=== PATIENT | male | born 1990 | race Caucasian/White ===

== ENCOUNTER 2018-03-06 18:30 | Emergency (ER) | payer MEDICAID ==
[~2018-03-06] VITALS: Ht 167.6 cm; Wt 81.8 kg
[2018-03-06 18:38] VITALS: Ht 167.6 cm; Wt 81.8 kg
[2018-03-06] MEDS ORDERED: KLONOPIN1 MG PO (18:39)
[2018-03-06] MEDS ORDERED: SEROQUEL100 MG PO (18:40)
[2018-03-06] MEDS ORDERED: CATAPRES0.1 MG PO (18:40)
[2018-03-06] MEDS ORDERED: DEPAKOTE ER500 MG PO (18:40)
[2018-03-06 19:38] LABS: BASOPHILS 0.3 % (0-2); EOSINOPHILS 0.6 % (0-7); HEMATOCRIT 40.6 % (42.0-54.0); HEMOGLOBIN 13.1 g/dL (13.5-17.5); IMMATURE GRANULOCYTES 0.1 % (0-5); LYMPHOCYTES 33.7 % (15-50); MCH 30.5 pg (26.0-34.0); MCHC 32.3 g/dL (31.0-37.0); MCV 94.4 fL (80.0-100.0); MEAN PLATELET VOLUME 10.3 fL (7.4-10.4); MONOCYTES 12.1 % (2-11); NEUTROPHILS 53.2 % (40-80); PLATELET COUNT 264 10x3/uL (130-400); RDW 13.8 % (11.5-14.5); WBC 7.8 10x3/uL (4.8-10.8)
[2018-03-06 19:49] LABS: APPEARANCE CLEAR (CLEAR); BACTERIA NONE SEEN /hpf (NONE SEEN); BILIRUBIN NEGATIVE (NEGATIVE); COLOR YELLOW (YELLOW); EPITHELIAL CELLS NSEEN /hpf (0-5); GLUCOSE 50 mg/dL (NEGATIVE); KETONE NEGATIVE (NEGATIVE); NITRITE NEGATIVE (NEGATIVE); PROTEIN NEGATIVE (NEGATIVE); RED CELLS - URINE NONE SEEN /hpf (0-5); UROBILINOGEN NORMAL (NORMAL); WHITE CELLS - URINE NSEEN /hpf (0-5)
[2018-03-06 20:01] LABS: UDS - AMPHET POSITIVE QUAL (NEGATIVE); UDS - BARB NEGATIVE QUAL (NEGATIVE); UDS - BENZO NEGATIVE QUAL (NEGATIVE); UDS - COCAINE NEGATIVE QUAL (NEGATIVE); UDS - OPIATE NEGATIVE QUAL (NEGATIVE); UDS - PCP NEGATIVE QUAL (NEGATIVE); UDS - THC NEGATIVE QUAL (NEGATIVE)
[2018-03-06 20:05] LABS: ALBUMIN 3.2 g/dL (3.4-5.0); ALKALINE PHOSPHATASE 77 U/L (46-116); ALT (SGPT) 51 U/L (10-68); BILIRUBIN - TOTAL 0.84 mg/dL (0.2-1.3); CALC OSMOLALITY 286 mosm/kg (275-300); CALCIUM 8.6 mg/dL (8.5-10.1); CARBON DIOXIDE 31.5 mmol/L (21.0-32.0); CHLORIDE - SERUM 106 mmol/L (98-107); CREATININE - SERUM 0.7 mg/dL (0.6-1.3); GLUCOSE 105 mg/dL (74-106); POTASSIUM - SERUM 3.7 mmol/L (3.5-5.1); PROTEIN - SERUM 7.3 g/dL (6.4-8.2); SODIUM 143 mmol/L (136-145); UREA NITROGEN 18 mg/dL (7-18); eGFR NON AFRICAN AMERICAN > 90 mL/min (90-120)
[2018-03-06 20:15] LABS: THYROID STIMULATING HORMONE 0.85 uIU/mL (0.36-3.74)
[2018-03-07 01:57] VITALS: BP 130/72
== END 2018-03-07 03:06 ==
LOC: D.ER 18:30
PROVIDERS: Family Medicine
DX: R45.851 Suicidal ideations (principal); F41.9 Anxiety disorder, unspecified; F19.10 Other psychoactive substance abuse, uncomplicated; F17.200 Nicotine dependence, unspecified, uncomplicated

== ENCOUNTER 2018-03-18 21:47 | Inpatient (IN) | payer MEDICAID ==
[~2018-03-18] VITALS: Ht 167.6 cm; Wt 85.0 kg
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
--- NOTE | ~2018-03-18 | MORECARE ---
CASE MANAGEMENT DISCHARGE SUMMARY PATIENT: CATHERINE BLACKMON UNIT: [id number] ADM DATE: 03/19/18 AGE: 27 : [birth year] SEX: M ROOM/BED: [facility] AUTHOR: KEYLA CAMARENA PHYSICIAN: REFERRING PHYSICIAN: MAC CARDONA MD DATE OF SERVICE: 03/22/18 Discharge Plan Patient Name: CATHERINE BLACKMON Facility: [facility]:[place] : 1990 Planned Disposition: Inpatient Rehab Anticipated Discharge Date: Discharge Date: Expected LOS: Initial Reviewer: [email or web address] Initial Review Date: 03/19/2018 Generated: 03/22/18 4:53 pm External Providers External Provider: OTHER-OTHER Next Contact Date: Service Request Date: Service Type: Resolution: Reviewer: Comments: Patient Name: CATHERINE BLACKMON Page [id number] at 1553 All edits/amendments must be made on the electronic document DICTATION DATE: 03/22/18 155 SENIOR INFRASTRUCTURE ARCHITECT: EFRA 03/22/18 155 RPT#: [id number] DC DATE: STATUS: ADM IN [facility] [address] [place] [address] END OF REPORT
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
--- NOTE | ~2018-03-18 | MORECARE ---
CASE MANAGEMENT DISCHARGE SUMMARY PATIENT: CATHERINE BLACKMON UNIT: [id number] ADM DATE: 03/19/18 AGE: 27 : [birth year] SEX: M ROOM/BED: D.2121 AUTHOR: MIGUE,DOC PHYSICIAN: REFERRING PHYSICIAN: MAC CARDONA MD DATE OF SERVICE: 03/24/18 Discharge Plan Patient Name: CATHERINE BLACKMON Facility: [facility]:[place] : 1990 Planned Disposition: Home Anticipated Discharge Date: 03/24/18 Discharge Date: 03/24/2018 Expected LOS: 5 Initial Reviewer: [email or web address] Initial Review Date: 03/19/2018 Generated: 03/24/18 5:35 pm Comments DCP- Discharge Planning Updated by [email or web address]: Balbina Tang on 03/23/18 3:[address] CM called and spoke with Johanna at [facility]. She stated that their physician wouldn't accept patient until he was completely healed. Also the patient would have to come to facility and be interviewed then if accepted would be admitted. CM contacted other facilities and [facility] sent over referral form. CM was at patients bedside asking questions on referral form. Patient states he isn't going into any rehab facility or outpatient rehab. Patient stated that his mother Genny Thomas was coming to pick him up and he was going home with her. Patient gave a number [phone] for Genny Thomas. CM attempted to call and it wasn't a working number. CM notified [facility] nurse of patients refusal to go to drug rehab and plans to go home with his mother. CM will continue to follow and assist as needed with discharge planning / needs. DCP- Discharge Planning Updated by [email or web address]: Balbina Tang on 03/22/18 2:[address] Patient Name: CATHERINE BLACKMON Admission Status: ER Accout number: [id number] Admission Date: 03-19-2018 : 1990 Admission Diagnosis: Attending: MAC CARDONA Current LOS: 3 Anticipated DC Date: Planned Disposition: Inpatient Rehab Primary Insurance: [place] [employer] [facility] Discharge Planning Comments: CM met with patient at bedside. CM explained that the MD is requesting that he go into and inpatient drug rehab facility upon discharge. Patient agrees for inpatient drug rehab at this time when he is medically stable. CM contacted [facility] [phone] . Faxed records and awaiting determination. CM will continue to follow and assist as needed with discharge planning / needs. Plant Health Care Technician: Balbina Yuen DP export: 03/23/18 4:08 Patient Name: CATHERINE BLACKMON Page [id number] at 1635 All edits/amendments must be made on the electronic document DICTATION DATE: 03/24/18 1635 SQUARE DANCE CALLER: EFRA 03/24/18 1635 RPT#: [id number] DC DATE:03/24/18 STATUS: DIS IN [facility] [address] [place] [address] END OF REPORT
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
--- NOTE | ~2018-03-18 | MORECARE ---
CASE MANAGEMENT DISCHARGE SUMMARY PATIENT: CATHERINE BLACKMON UNIT: [id number] ADM DATE: 03/19/18 AGE: 27 : [birth year] SEX: M ROOM/BED: [facility] AUTHOR: KEYLA CAMARENA PHYSICIAN: REFERRING PHYSICIAN: MAC CARDONA MD DATE OF SERVICE: 03/22/18 Discharge Plan Patient Name: CATHERINE BLACKMON Facility: [facility]:[place] : 1990 Planned Disposition: Inpatient Rehab Anticipated Discharge Date: Discharge Date: Expected LOS: Initial Reviewer: [email or web address] Initial Review Date: 03/19/2018 Generated: 03/22/18 5:04 pm Comments DCP- Discharge Planning Updated by [email or web address]: Balbina Tang on 03/22/18 2:[address] Patient Name: CATHERINE BLACKMON Admission Status: ER Accout number: [id number] Admission Date: 03-19-2018 : 1990 Admission Diagnosis: Attending: MAC CARDONA Current LOS: 3 Anticipated DC Date: Planned Disposition: Inpatient Rehab Primary Insurance: [place] [employer] [facility] Discharge Planning Comments: CM met with patient at bedside. CM explained that the MD is requesting that he go into and inpatient drug rehab facility upon discharge. Patient agrees for inpatient drug rehab at this time when he is medically stable. CM contacted [facility] [phone] . Faxed records and awaiting determination. CM will continue to follow and assist as needed with discharge planning / needs. Measurement Specialist: Balbina Tang Last DP export: 03/22/18 2:53 Patient Name: CATHERINE BLACKMON Page 57213 at 1604 All edits/amendments must be made on the electronic document DICTATION DATE: 03/22/181602 TOGGLE PRESS FOLDER AND FEEDER: EFRA 03/22/18 160 RPT#: [id number] DC DATE: STATUS: ADM IN [facility] [address] [place] [address] END OF REPORT
--- NOTE | ~2018-03-18 | MORECARE ---
CASE MANAGEMENT DISCHARGE SUMMARY PATIENT: CATHERINE BLACKMON UNIT: [id number] ADM DATE: 03/19/18 AGE: 27 : [birth year] SEX: M ROOM/BED: D.2121 AUTHOR: MIGUE,DOC PHYSICIAN: REFERRING PHYSICIAN: MAC CARDONA MD DATE OF SERVICE: 03/23/18 Discharge Plan Patient Name: CATHERINE BLACKMON Facility: [facility]:[place] : 1990 Planned Disposition: Inpatient Rehab Anticipated Discharge Date: Discharge Date: Expected LOS: Initial Reviewer: [email or web address] Initial Review Date: 03/19/2018 Generated: 03/23/18 6:08 pm Comments DCP- Discharge Planning Updated by [email or web address]: Balbina Tang on 03/23/18 3:[address] CM called and spoke with Johanna at [facility]. She stated that their physician wouldn't accept patient until he was completely healed. Also the patient would have to come to facility and be interviewed then if accepted would be admitted. CM contacted other facilities and [facility] sent over referral form. CM was at patients bedside asking questions on referral form. Patient states he isn't going into any rehab facility or outpatient rehab. Patient stated that his mother Genny Thomas was coming to pick him up and he was going home with her. Patient gave a number [phone] for Genny Thomas. CM attempted to call and it wasn't a working number. CM notified [facility] nurse of patients refusal to go to drug rehab and plans to go home with his mother. CM will continue to follow and assist as needed with discharge planning / needs. DCP- Discharge Planning Updated by [email or web address]: Balbina Tang on 03/22/18 2:[address] Patient Name: CATHERINE BLACKMON Admission Status: ER Accout number: [id number] Admission Date: 03-19-2018 : 1990 Admission Diagnosis: Attending: MAC CARDONA Current LOS: 3 Anticipated DC Date: Planned Disposition: Inpatient Rehab Primary Insurance: [place] [employer] [facility] Discharge Planning Comments: CM met with patient at bedside. CM explained that the MD is requesting that he go into and inpatient drug rehab facility upon discharge. Patient agrees for inpatient drug rehab at this time when he is medically stable. CM contacted [facility] [phone] . Faxed records and awaiting determination. CM will continue to follow and assist as needed with discharge planning / needs. Barrel Rifler Broach: Balbina Yuen DP export: 03/22/18 3:04 Patient Name: CATHERINE BLACKMON Page 41143 at 1708 All edits/amendments must be made on the electronic document DICTATION DATE: 03/23/181707 LIVESTOCK FARM WORKERS: EFRA 03/23/181707 RPT#: [id number] DC DATE: STATUS: ADM IN [facility] [address] [place] [address] END OF REPORT
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
--- NOTE | ~2018-03-18 | EC ---
PATIENT:CATHERINE BLACKMON DATE OF SERVICE: 03/19/18 SEX: M MEDICAL RECORD: [id number] DATE OF : [birth year] LOCATION:[place] [address] AGE OF PATIENT: 27 ADMISSION DATE: 03/19/18 REFERRING PHYSICIAN: INTERPRETING PHYSICIAN: LIDIA ANN MD ECHOCARDIOGRAM REPORT ECHO CHARGES 5 ECHO LIMITED Date: 03/19/18 CLINICAL DIAGNOSIS: REASSESS FOR PERICARDIAL EFFUSION ECHOCARDIOGRAPHIC MEASUREMENTS (adult normal given) AC root (d.<3.7cm) 3.5 cm LV Septum d (<1.2 cm> 1.3 cm Valve Excursion 1.5 cm LV Septum (systole) 1.4 cm Left Atria (s.<4.0cm> 3.2 cm LVPW d(<1.2cm) 1.2 cm RV (d.<2.3cm) 4.4 cm LVPW (sytole) 1.4 cm LV diastole(<5.6CM) 3.9 cm MV E-F(>70mm/sec) cm LV systole 2.5 cm LVOT Diameter 2.3 cm MV exc.(>10mm) cm Est.ejection fraction (50-75%) % DOPPLER: LVIT cm/sec A 96.0 cm/sec E 65.0 cm/sec LA cm/sec RVSP 40 mmHg LVOT 97 cm/sec AOP1/2T m/s Asc. Ao 110 cm/sec RVOT 64 cm/sec RA cm/sec PA 101 cm/sec AV Gradient Peak 4.86 mmHg AV Mean 2.45 mmHg AV Area 4.1 cm MV Gradient Peak 4.67 mmHg MV Mean 1.83 mmHg MV Area cm COMMENTS: First Aid Teacher: 2 BRISA SANON Supervisor Packing: 3 Dr. Adrian TAPE# PACS Pericardial Effusion Y DATE OF SERVICE: 03/21/2018 Limited study, includes 2-D. Grossly, no LVH. LV internal dimension is normal. Wall motion is normal. EF is greater than or equal to 55%. Aortic valve appears tricuspid. Left atrium appears normal. Mitral valve appears normal. Right-sided chambers appear grossly normal. Tricuspid valve appears normal. No evidence of pericardial effusion. ECHOCARDIOGRAM REPORT [id number] CATHERINE BLACKMON TRANSINT:[id number] Voice Confirmation ID: [id number] DOCUMENT ID: [id number] LIDIA ANN MD at 1150 CC: [id number] DICTATION DATE: 03/21/1844 SUPERVISOR NET MAKING: 03/21/18 1232 ADM IN [facility] [address] [place] [address]
[~2018-03-18 21:47] MED LIST: CATAPRES0.1 MG PO; DEPAKOTE ER500 MG PO; KLONOPIN1 MG PO; SEROQUEL100 MG PO
[2018-03-18 22:05] LABS: HEMATOCRIT 38.6 % (42.0-54.0); HEMOGLOBIN 12.7 g/dL (13.5-17.5); MCH 30.9 pg (26.0-34.0); MCHC 32.9 g/dL (31.0-37.0); MCV 93.9 fL (80.0-100.0); PLATELET COUNT 400 10x3/uL (130-400); RBC 4.11 10x6/uL (4.20-6.10); RDW 14.1 % (11.5-14.5); WBC 30.7 10x3/uL (4.8-10.8)
[2018-03-18 22:22] LABS: ALBUMIN 3.4 g/dL (3.4-5.0); ANION GAP 20.3 mmol/L (8-16); BILIRUBIN - TOTAL 0.69 mg/dL (0.2-1.3); CALCIUM 8.8 mg/dL (8.5-10.1); CARBON DIOXIDE 21.4 mmol/L (21.0-32.0); CREATININE - SERUM 1.6 mg/dL (0.6-1.3); POTASSIUM - SERUM 3.7 mmol/L (3.5-5.1); PROTEIN - SERUM 7.1 g/dL (6.4-8.2)
[2018-03-18 22:37] LABS: LYMPHOCYTES 16 % (15-50); MONOCYTES 7 % (2-11); NEUTROPHILS 77 % (40-80); PLATELET ESTIMATE INCREASED
[2018-03-18 22:38] VITALS: BP 76/40
[2018-03-18 22:43] VITALS: BP 64/31
[2018-03-18 23:00] VITALS: BP 64/31
[2018-03-18 23:13] VITALS: BP 106/68
[2018-03-18 23:16] VITALS: BP 110/38
[2018-03-18 23:30] VITALS: BP 132/96
[2018-03-19] VITALS (60 sets, daily range): BP systolic 86–192; BP diastolic 40–105; Ht 167.6 cm; Wt 85.0 kg
[2018-03-19 01:09] LABS: BASOPHILS 0.1 % (0-2); EOSINOPHILS 0.1 % (0-7); HEMATOCRIT 33.2 % (42.0-54.0); HEMOGLOBIN 11.2 g/dL (13.5-17.5); IMMATURE GRANULOCYTES 0.8 % (0-5); LYMPHOCYTES 8.2 % (15-50); MCH 30.8 pg (26.0-34.0); MCHC 33.7 g/dL (31.0-37.0); MCV 91.2 fL (80.0-100.0); MEAN PLATELET VOLUME 10.8 fL (7.4-10.4); MONOCYTES 8.6 % (2-11); NEUTROPHILS 82.2 % (40-80); PLATELET COUNT 228 10x3/uL (130-400); RBC 3.64 10x6/uL (4.20-6.10); RDW 14.1 % (11.5-14.5); WBC 22.6 10x3/uL (4.8-10.8)
[2018-03-19 01:20] LABS: APPEARANCE CLEAR (CLEAR); BILIRUBIN NEGATIVE (NEGATIVE); COLOR YELLOW (YELLOW); GLUCOSE 50 mg/dL (NEGATIVE); KETONE NEGATIVE (NEGATIVE); NITRITE NEGATIVE (NEGATIVE); PROTEIN NEGATIVE (NEGATIVE); UROBILINOGEN NORMAL (NORMAL)
[2018-03-19 06:24] LABS: BASOPHILS 0.1 % (0-2); EOSINOPHILS 0.1 % (0-7); HEMATOCRIT 28.7 % (42.0-54.0); HEMOGLOBIN 9.6 g/dL (13.5-17.5); IMMATURE GRANULOCYTES 0.2 % (0-5); MCH 30.5 pg (26.0-34.0); MCHC 33.4 g/dL (31.0-37.0); MCV 91.1 fL (80.0-100.0); MEAN PLATELET VOLUME 9.9 fL (7.4-10.4); MONOCYTES 9.9 % (2-11); NEUTROPHILS 72.7 % (40-80); RBC 3.15 10x6/uL (4.20-6.10); RDW 14.4 % (11.5-14.5)
[2018-03-19 06:28] LABS: PLATELET COUNT 311 10x3/uL (130-400); WBC 13.5 10x3/uL (4.8-10.8)
[2018-03-19 06:30] LABS: CALCIUM 7.8 mg/dL (8.5-10.1); CARBON DIOXIDE 25.3 mmol/L (21.0-32.0); CHLORIDE - SERUM 108 mmol/L (98-107); SODIUM 143 mmol/L (136-145)
[2018-03-19 06:35] LABS: CALC OSMOLALITY 287 mosm/kg (275-300); CREATININE - SERUM 0.8 mg/dL (0.6-1.3); GLUCOSE 88 mg/dL (74-106); UREA NITROGEN 23 mg/dL (7-18); eGFR NON AFRICAN AMERICAN > 90 mL/min (90-120)
[2018-03-19 09:05] LABS: HEMATOCRIT 30.6 % (42.0-54.0); HEMOGLOBIN 9.9 g/dL (13.5-17.5); MCH 29.6 pg (26.0-34.0); MCHC 32.4 g/dL (31.0-37.0); MCV 91.6 fL (80.0-100.0); MEAN PLATELET VOLUME 10.2 fL (7.4-10.4); RBC 3.34 10x6/uL (4.20-6.10); RDW 14.5 % (11.5-14.5); WBC 12.8 10x3/uL (4.8-10.8)
[2018-03-19 09:14] LABS: UDS - AMPHET POSITIVE QUAL (NEGATIVE); UDS - BARB NEGATIVE QUAL (NEGATIVE); UDS - BENZO POSITIVE QUAL (NEGATIVE); UDS - COCAINE NEGATIVE QUAL (NEGATIVE); UDS - OPIATE NEGATIVE QUAL (NEGATIVE); UDS - PCP NEGATIVE QUAL (NEGATIVE); UDS - THC NEGATIVE QUAL (NEGATIVE)
[2018-03-19 09:14] LABS: INR 1.15 (0.85-1.17); PROTIME 14.3 SECONDS (11.6-15.0)
[2018-03-19 09:20] LABS: ALKALINE PHOSPHATASE 55 U/L (46-116); ALT (SGPT) 38 U/L (10-68); BILIRUBIN - TOTAL 0.59 mg/dL (0.2-1.3); CALC OSMOLALITY 286 mosm/kg (275-300); CALCIUM 7.9 mg/dL (8.5-10.1); CARBON DIOXIDE 28.1 mmol/L (21.0-32.0); CHLORIDE - SERUM 108 mmol/L (98-107); CREATININE - SERUM 0.9 mg/dL (0.6-1.3); GLUCOSE 85 mg/dL (74-106); PROTEIN - SERUM 6.2 g/dL (6.4-8.2); SODIUM 143 mmol/L (136-145); UREA NITROGEN 22 mg/dL (7-18); eGFR NON AFRICAN AMERICAN > 90 mL/min (90-120)
[2018-03-19 09:24] LABS: POTASSIUM - SERUM 3.6 mmol/L (3.5-5.1)
[2018-03-20] VITALS (44 sets, daily range): BP systolic 97–129; BP diastolic 43–79
[2018-03-20 04:07] LABS: APPEARANCE HAZY (CLEAR); BACTERIA NONE SEEN /hpf (NONE SEEN); BILIRUBIN NEGATIVE (NEGATIVE); COLOR DK YELLOW (YELLOW); EPITHELIAL CELLS RARE /hpf (0-5); GLUCOSE NEGATIVE (NEGATIVE); KETONE LARGE mg/dL (NEGATIVE); MUCUS >1+ /lpf (NONE SEEN); NITRITE NEGATIVE (NEGATIVE); PROTEIN TRACE mg/dL (NEGATIVE); UROBILINOGEN NORMAL (NORMAL); WHITE CELLS - URINE 0-5 /hpf (0-5)
[2018-03-20 05:45] LABS: BASOPHILS 0.2 % (0-2); EOSINOPHILS 0.2 % (0-7); HEMOGLOBIN 8.6 g/dL (13.5-17.5); IMMATURE GRANULOCYTES 0.2 % (0-5); LYMPHOCYTES 13.9 % (15-50); MCH 30.6 pg (26.0-34.0); MCHC 33.1 g/dL (31.0-37.0); MCV 92.5 fL (80.0-100.0); MONOCYTES 10.9 % (2-11); NEUTROPHILS 74.6 % (40-80); PLATELET COUNT 257 10x3/uL (130-400); RBC 2.81 10x6/uL (4.20-6.10); RDW 14.9 % (11.5-14.5); WBC 12.5 10x3/uL (4.8-10.8)
[2018-03-20 05:54] LABS: ALBUMIN 2.6 g/dL (3.4-5.0); ALKALINE PHOSPHATASE 51 U/L (46-116); ALT (SGPT) 32 U/L (10-68); BILIRUBIN - TOTAL 0.91 mg/dL (0.2-1.3); CALCIUM 8.1 mg/dL (8.5-10.1); CARBON DIOXIDE 24.3 mmol/L (21.0-32.0); CHLORIDE - SERUM 106 mmol/L (98-107); GLUCOSE 105 mg/dL (74-106); POTASSIUM - SERUM 3.2 mmol/L (3.5-5.1); SODIUM 139 mmol/L (136-145)
[2018-03-20 06:11] LABS: CALC OSMOLALITY 277 mosm/kg (275-300); CREATININE - SERUM 0.5 mg/dL (0.6-1.3); UREA NITROGEN 13 mg/dL (7-18); eGFR NON AFRICAN AMERICAN > 90 mL/min (90-120)
[2018-03-21] VITALS (23 sets, daily range): BP systolic 98–137; BP diastolic 47–78
[2018-03-21 06:19] LABS: HEMATOCRIT 24.5 % (42.0-54.0); HEMOGLOBIN 8.2 g/dL (13.5-17.5); MCH 30.8 pg (26.0-34.0); MCHC 33.5 g/dL (31.0-37.0); MCV 92.1 fL (80.0-100.0); RBC 2.66 10x6/uL (4.20-6.10); RDW 14.3 % (11.5-14.5); WBC 14.5 10x3/uL (4.8-10.8)
[2018-03-21 06:48] LABS: ALBUMIN 2.4 g/dL (3.4-5.0); ALKALINE PHOSPHATASE 50 U/L (46-116); ALT (SGPT) 28 U/L (10-68); CALC OSMOLALITY 266 mosm/kg (275-300); CALCIUM 8.2 mg/dL (8.5-10.1); CARBON DIOXIDE 25.8 mmol/L (21.0-32.0); CHLORIDE - SERUM 100 mmol/L (98-107); CREATININE - SERUM 0.5 mg/dL (0.6-1.3); GLUCOSE 124 mg/dL (74-106); POTASSIUM - SERUM 3.3 mmol/L (3.5-5.1); PROTEIN - SERUM 6.4 g/dL (6.4-8.2); SODIUM 134 mmol/L (136-145); eGFR NON AFRICAN AMERICAN > 90 mL/min (90-120)
[2018-03-21 06:58] LABS: UREA NITROGEN 8 mg/dL (7-18)
[2018-03-22] VITALS (24 sets, daily range): BP systolic 93–154; BP diastolic 48–82
[2018-03-22 06:31] LABS: HEMATOCRIT 23.7 % (42.0-54.0); HEMOGLOBIN 7.7 g/dL (13.5-17.5); MCH 29.8 pg (26.0-34.0); MCHC 32.5 g/dL (31.0-37.0); MCV 91.9 fL (80.0-100.0); MEAN PLATELET VOLUME 10.2 fL (7.4-10.4); RBC 2.58 10x6/uL (4.20-6.10)
[2018-03-22 06:37] LABS: WBC 9.9 10x3/uL (4.8-10.8)
[2018-03-22 06:57] LABS: ALKALINE PHOSPHATASE 46 U/L (46-116); ALT (SGPT) 27 U/L (10-68); BILIRUBIN - TOTAL 0.61 mg/dL (0.2-1.3); CALC OSMOLALITY 279 mosm/kg (275-300); CALCIUM 7.7 mg/dL (8.5-10.1); CARBON DIOXIDE 26.4 mmol/L (21.0-32.0); CHLORIDE - SERUM 104 mmol/L (98-107); CREATININE - SERUM 0.6 mg/dL (0.6-1.3); GLUCOSE 148 mg/dL (74-106); POTASSIUM - SERUM 2.8 mmol/L (3.5-5.1); PROTEIN - SERUM 6.2 g/dL (6.4-8.2); SODIUM 140 mmol/L (136-145); UREA NITROGEN 6 mg/dL (7-18); eGFR NON AFRICAN AMERICAN > 90 mL/min (90-120)
[2018-03-22 13:39] LABS: UDS - AMPHET NEGATIVE QUAL (NEGATIVE); UDS - BARB NEGATIVE QUAL (NEGATIVE); UDS - BENZO NEGATIVE QUAL (NEGATIVE); UDS - COCAINE NEGATIVE QUAL (NEGATIVE); UDS - OPIATE POSITIVE QUAL (NEGATIVE); UDS - PCP NEGATIVE QUAL (NEGATIVE); UDS - THC NEGATIVE QUAL (NEGATIVE)
[2018-03-23] VITALS (14 sets, daily range): BP systolic 93–126; BP diastolic 47–81
[2018-03-23 09:43] LABS: CALCIUM 8.7 mg/dL (8.5-10.1); CARBON DIOXIDE 25.5 mmol/L (21.0-32.0); CHLORIDE - SERUM 104 mmol/L (98-107); CREATININE - SERUM 0.6 mg/dL (0.6-1.3); GLUCOSE 104 mg/dL (74-106); SODIUM 140 mmol/L (136-145); eGFR NON AFRICAN AMERICAN > 90 mL/min (90-120)
[2018-03-23 09:44] LABS: CALC OSMOLALITY 276 mosm/kg (275-300); POTASSIUM - SERUM 3.3 mmol/L (3.5-5.1); UREA NITROGEN 8 mg/dL (7-18)
[2018-03-23 10:14] LABS: HEMATOCRIT 27.3 % (42.0-54.0); HEMOGLOBIN 8.8 g/dL (13.5-17.5); MCH 29.9 pg (26.0-34.0); MCHC 32.2 g/dL (31.0-37.0); MCV 92.9 fL (80.0-100.0); MEAN PLATELET VOLUME 10.1 fL (7.4-10.4); RBC 2.94 10x6/uL (4.20-6.10); RDW 13.7 % (11.5-14.5); WBC 10.2 10x3/uL (4.8-10.8)
[2018-03-24 00:54] VITALS: BP 122/60
[2018-03-24 05:32] VITALS: BP 127/73
[2018-03-24 08:31] VITALS: BP 114/69
[2018-03-24 12:00] VITALS: BP 141/67
[2018-03-24 16:03] VITALS: BP 121/82
== END 2018-03-24 16:15 | disposition home or self-care (01) | DRG 270 ==
LOC: D.ER 21:47 → D.CVICU 03-19 03:10 → D.EDHOLD 03-19 03:10 → D.CVICU 03-19 03:13 → D.M2 03-23 16:43
PROVIDERS: Family Medicine; Internal Medicine Cardiovascular Disease; Thoracic Surgery (Cardiothoracic Vascular Surgery)
PROC: 0W9940Z Drainage of Right Pleural Cavity with Drainage Device, Percutaneous Endoscopic Approach (ICD-10-PCS; 2018-03-19)
PROC: 05HM33Z Insertion of Infusion Device into Right Internal Jugular Vein, Percutaneous Approach (ICD-10-PCS; 2018-03-19)
PROC: 5A1935Z Respiratory Ventilation, Less than 24 Consecutive Hours (ICD-10-PCS; 2018-03-19)
PROC: 0BH17EZ Insertion of Endotracheal Airway into Trachea, Via Natural or Artificial Opening (ICD-10-PCS; 2018-03-19)
PROC: 0W9930Z Drainage of Right Pleural Cavity with Drainage Device, Percutaneous Approach (ICD-10-PCS; 2018-03-19)
PROC: 0WC Anatomical Regions, General, Extirpation (ICD-10-PCS; principal; 2018-03-19 09:45)
DX: I31.3 Pericardial effusion (noninflammatory) (principal); S27.1XXA Traumatic hemothorax, initial encounter; S22.2 Fracture of sternum; S21.311A Laceration without foreign body of right front wall of thorax with penetration into thoracic cavity, initial encounter; D62 Acute posthemorrhagic anemia; F32.1 Major depressive disorder, single episode, moderate; S27.892A Contusion of other specified intrathoracic organs, initial encounter; F17.200 Nicotine dependence, unspecified, uncomplicated; F15.10 Other stimulant abuse, uncomplicated; Y28.9XXA Contact with unspecified sharp object, undetermined intent, initial encounter

== ENCOUNTER 2018-03-26 16:11 | Emergency (ER) | payer MEDICAID ==
[2018-03-26 16:21] VITALS: Ht 167.6 cm
[2018-03-26 16:47] LABS: BASOPHILS 0.4 % (0-2); EOSINOPHILS 0.6 % (0-7); HEMATOCRIT 33.1 % (42.0-54.0); HEMOGLOBIN 10.4 g/dL (13.5-17.5); IMMATURE GRANULOCYTES 2.5 % (0-5); LYMPHOCYTES 18.6 % (15-50); MCH 29.5 pg (26.0-34.0); MCHC 31.4 g/dL (31.0-37.0); MEAN PLATELET VOLUME 9.3 fL (7.4-10.4); MONOCYTES 7.5 % (2-11); NEUTROPHILS 70.4 % (40-80); RBC 3.52 10x6/uL (4.20-6.10); RDW 14.1 % (11.5-14.5); WBC 15.9 10x3/uL (4.8-10.8)
[2018-03-26 16:52] LABS: PLATELET COUNT 542 10x3/uL (130-400)
[2018-03-26 16:52] LABS: UDS - AMPHET NEGATIVE QUAL (NEGATIVE); UDS - BARB NEGATIVE QUAL (NEGATIVE); UDS - BENZO POSITIVE QUAL (NEGATIVE); UDS - COCAINE NEGATIVE QUAL (NEGATIVE); UDS - OPIATE NEGATIVE QUAL (NEGATIVE); UDS - PCP NEGATIVE QUAL (NEGATIVE); UDS - THC NEGATIVE QUAL (NEGATIVE)
[2018-03-26 16:56] LABS: APPEARANCE CLEAR (CLEAR); BILIRUBIN NEGATIVE (NEGATIVE); COLOR YELLOW (YELLOW); GLUCOSE NEGATIVE (NEGATIVE); KETONE NEGATIVE (NEGATIVE); NITRITE NEGATIVE (NEGATIVE); PH 6.5 (5.0-6.0); PROTEIN NEGATIVE (NEGATIVE); UROBILINOGEN NORMAL (NORMAL)
[2018-03-26 17:03] LABS: ALBUMIN 2.9 g/dL (3.4-5.0); ALKALINE PHOSPHATASE 92 U/L (46-116); ALT (SGPT) 138 U/L (10-68); BILIRUBIN - TOTAL 0.39 mg/dL (0.2-1.3); CALC OSMOLALITY 276 mosm/kg (275-300); CALCIUM 9.1 mg/dL (8.5-10.1); CHLORIDE - SERUM 102 mmol/L (98-107); CREATININE - SERUM 0.7 mg/dL (0.6-1.3); GLUCOSE 142 mg/dL (74-106); POTASSIUM - SERUM 4.2 mmol/L (3.5-5.1); PROTEIN - SERUM 7.7 g/dL (6.4-8.2); SODIUM 137 mmol/L (136-145); UREA NITROGEN 16 mg/dL (7-18); eGFR NON AFRICAN AMERICAN > 90 mL/min (90-120)
[2018-03-26 22:30] VITALS: BP 130/75
== END 2018-03-27 ==
LOC: D.ER 16:11
PROVIDERS: Family Medicine
DX: R45.850 Homicidal ideations (principal); F17.200 Nicotine dependence, unspecified, uncomplicated

== ENCOUNTER 2018-04-03 07:34 | Inpatient (IN) | payer MEDICAID ==
[~2018-04-03] VITALS: Ht 167.6 cm; Wt 84.6 kg
[2018-04-03] VITALS (11 sets, daily range): BP systolic 107–126; BP diastolic 52–78; Ht 167.6 cm; Wt 84.6 kg
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
--- NOTE | ~2018-04-03 | MORECARE ---
CASE MANAGEMENT DISCHARGE SUMMARY PATIENT: CATHERINE BLACKMON UNIT: [id number] ADM DATE: 04/03/18 AGE: 27 : [birth year] SEX: M ROOM/BED: D.2305 AUTHOR: KEYLA CAMARENA PHYSICIAN: REFERRING PHYSICIAN: RIGO LOUIE MD DATE OF SERVICE: 04/05/18 Discharge Plan Patient Name: CATHERINE BLACKMON Facility: [facility]:[place] : 1990 Planned Disposition: Psych facility Anticipated Discharge Date: Discharge Date: 04/05/2018 Expected LOS: Initial Reviewer: [email or web address] Initial Review Date: 04/05/2018 Generated: 04/05/18 5:02 pm Comments DCP- Discharge Planning Updated by [email or web address]: Balbina Tang on 04/05/18 3:[address] Late Entry 04/05/18 @ 0930 Patient Name: CATHERINE BLACKOMN Admission Status: ER Accout number: [id number] Admission Date: 04-03-2018 : 1990 Admission Diagnosis:PERICARDIAL EFFUSION (NONINFLAMMATORY) Attending: RIGO LOUIE Current LOS: 2 Anticipated DC Date: Planned Disposition: Psych facility Primary Insurance: [place] [employer] [facility] Discharge Planning Comments: CM received notification that patient is medically stable for transfer to psychiatric facility. CM notified transfer center and faxed clinicals requested patient is requesting [facility] for placement and call center aware. CM will continue to follow and assist as needed with discharge planning / needs. Hotel Maid: Balbina Tang External Providers External Provider: [facility] Next Contact Date: Service Request Date: Service Type: Resolution: Reviewer: Comments: Patient Name: CATHERINE BLACKMON Page 20902 at 1602 All edits/amendments must be made on the electronic document DICTATION DATE: 04/05/181601 HOOK LOADER: EFRA 04/05/18 160 RPT#: [id number] DC DATE:04/05/18 STATUS: DIS IN [facility] [address] [facility] [place] [address] END OF REPORT
[2018-04-03 08:36] LABS: BASOPHILS 0.2 % (0-2); EOSINOPHILS 0.6 % (0-7); HEMATOCRIT 27.7 % (42.0-54.0); HEMOGLOBIN 8.6 g/dL (13.5-17.5); IMMATURE GRANULOCYTES 0.4 % (0-5); LYMPHOCYTES 20.1 % (15-50); MCH 28.3 pg (26.0-34.0); MCV 91.1 fL (80.0-100.0); MEAN PLATELET VOLUME 9.1 fL (7.4-10.4); MONOCYTES 15.7 % (2-11); PLATELET COUNT 612 10x3/uL (130-400); RBC 3.04 10x6/uL (4.20-6.10); WBC 13.6 10x3/uL (4.8-10.8)
[2018-04-03 12:01] LABS: APTT 42.8 SECONDS (22.8-39.4); INR 1.24 (0.85-1.17)
[2018-04-03 12:03] LABS: ALBUMIN 2.5 g/dL (3.4-5.0); ALKALINE PHOSPHATASE 98 U/L (46-116); ALT (SGPT) 101 U/L (10-68); BILIRUBIN - TOTAL 0.71 mg/dL (0.2-1.3); CALC OSMOLALITY 270 mosm/kg (275-300); CALCIUM 8.5 mg/dL (8.5-10.1); CARBON DIOXIDE 25.1 mmol/L (21.0-32.0); CHLORIDE - SERUM 103 mmol/L (98-107); CREATININE - SERUM 0.6 mg/dL (0.6-1.3); MAGNESIUM - SERUM 2.2 mg/dL (1.8-2.4); PROTEIN - SERUM 7.5 g/dL (6.4-8.2); SODIUM 136 mmol/L (136-145); UREA NITROGEN 10 mg/dL (7-18); eGFR NON AFRICAN AMERICAN > 90 mL/min (90-120)
[2018-04-03 12:04] LABS: GLUCOSE 94 mg/dL (74-106)
[2018-04-03 14:39] LABS: UDS - AMPHET NEGATIVE QUAL (NEGATIVE); UDS - BARB NEGATIVE QUAL (NEGATIVE); UDS - BENZO NEGATIVE QUAL (NEGATIVE); UDS - COCAINE NEGATIVE QUAL (NEGATIVE); UDS - OPIATE NEGATIVE QUAL (NEGATIVE); UDS - PCP NEGATIVE QUAL (NEGATIVE); UDS - THC NEGATIVE QUAL (NEGATIVE)
[2018-04-04] VITALS (22 sets, daily range): BP systolic 94–134; BP diastolic 54–86
[2018-04-05] VITALS (7 sets, daily range): BP systolic 96–121; BP diastolic 59–75
[2018-04-05 04:51] LABS: BASOPHILS 0.3 % (0-2); EOSINOPHILS 3.5 % (0-7); HEMATOCRIT 29.4 % (42.0-54.0); IMMATURE GRANULOCYTES 0.3 % (0-5); LYMPHOCYTES 45.9 % (15-50); MCH 28.2 pg (26.0-34.0); MCHC 30.6 g/dL (31.0-37.0); MCV 92.2 fL (80.0-100.0); PLATELET COUNT 727 10x3/uL (130-400); RBC 3.19 10x6/uL (4.20-6.10); RDW 14.6 % (11.5-14.5)
[2018-04-05 04:53] LABS: WBC 7.2 10x3/uL (4.8-10.8)
[2018-04-05 05:02] LABS: CALC OSMOLALITY 280 mosm/kg (275-300); CALCIUM 8.9 mg/dL (8.5-10.1); CARBON DIOXIDE 26.6 mmol/L (21.0-32.0); CHLORIDE - SERUM 104 mmol/L (98-107); CREATININE - SERUM 0.7 mg/dL (0.6-1.3); POTASSIUM - SERUM 3.4 mmol/L (3.5-5.1); SODIUM 139 mmol/L (136-145); UREA NITROGEN 12 mg/dL (7-18); eGFR NON AFRICAN AMERICAN > 90 mL/min (90-120)
[2018-04-05 05:10] LABS: GLUCOSE 150 mg/dL (74-106)
== END 2018-04-05 14:30 | disposition short-term general hospital (02) | DRG 315 ==
LOC: D.ER 07:34 → D.M2 08:51 → D.ICU 08:51
PROVIDERS: Emergency Medicine; Internal Medicine Nephrology; Psychiatry & Neurology Psychiatry
DX: I30.9 Acute pericarditis, unspecified (principal); D62 Acute posthemorrhagic anemia; R45.851 Suicidal ideations; F31.9 Bipolar disorder, unspecified; F41.8 Other specified anxiety disorders; K21.9 Gastro-esophageal reflux disease without esophagitis

== ENCOUNTER 2018-04-28 12:11 | Emergency (ER) | payer MEDICAID ==
[2018-04-28 12:27] VITALS: Ht 167.6 cm
[2018-04-28 13:09] LABS: BASOPHILS 0.3 % (0-2); HEMATOCRIT 38.3 % (42.0-54.0); HEMOGLOBIN 12.4 g/dL (13.5-17.5); IMMATURE GRANULOCYTES 0.1 % (0-5); MCH 28.9 pg (26.0-34.0); MCHC 32.4 g/dL (31.0-37.0); MCV 89.3 fL (80.0-100.0); MEAN PLATELET VOLUME 10.3 fL (7.4-10.4); NEUTROPHILS 63.6 % (40-80); RBC 4.29 10x6/uL (4.20-6.10); RDW 15.6 % (11.5-14.5)
[2018-04-28 13:19] LABS: PLATELET COUNT 285 10x3/uL (130-400)
[2018-04-28 13:28] LABS: ALBUMIN 3.7 g/dL (3.4-5.0); ALKALINE PHOSPHATASE 88 U/L (46-116); ALT (SGPT) 45 U/L (10-68); BILIRUBIN - TOTAL 1.03 mg/dL (0.2-1.3); CALC OSMOLALITY 283 mosm/kg (275-300); CALCIUM 8.7 mg/dL (8.5-10.1); CARBON DIOXIDE 21.9 mmol/L (21.0-32.0); CHLORIDE - SERUM 104 mmol/L (98-107); CREATININE - SERUM 0.8 mg/dL (0.6-1.3); GLUCOSE 91 mg/dL (74-106); POTASSIUM - SERUM 3.3 mmol/L (3.5-5.1); SODIUM 139 mmol/L (136-145); UREA NITROGEN 30 mg/dL (7-18); eGFR NON AFRICAN AMERICAN > 90 mL/min (90-120)
[2018-04-28 15:25] LABS: APPEARANCE CLEAR (CLEAR); COLOR YELLOW (YELLOW); NITRITE NEGATIVE (NEGATIVE); SPECIFIC GRAVITY 1.025 (1.005-1.020)
[2018-04-28 15:26] LABS: BILIRUBIN NEGATIVE (NEGATIVE); GLUCOSE NEGATIVE (NEGATIVE); KETONE MODERATE mg/dL (NEGATIVE); PROTEIN NEGATIVE (NEGATIVE); UROBILINOGEN NORMAL (NORMAL)
[2018-04-28 15:33] LABS: UDS - AMPHET POSITIVE QUAL (NEGATIVE); UDS - BARB NEGATIVE QUAL (NEGATIVE); UDS - BENZO NEGATIVE QUAL (NEGATIVE); UDS - COCAINE POSITIVE QUAL (NEGATIVE); UDS - OPIATE NEGATIVE QUAL (NEGATIVE); UDS - PCP NEGATIVE QUAL (NEGATIVE); UDS - THC NEGATIVE QUAL (NEGATIVE)
[2018-04-28 18:54] VITALS: BP 148/088
== END 2018-04-28 18:54 ==
LOC: D.ER 12:11
PROVIDERS: Family Medicine
DX: R45.851 Suicidal ideations (principal); Z59.0 Homelessness; Z86.59 Personal history of other mental and behavioral disorders

== ENCOUNTER 2018-06-08 06:32 | Emergency (ER) | payer MEDICAID ==
[~2018-06-08] VITALS: Ht 167.6 cm; Wt 91.4 kg
[2018-06-08 06:49] VITALS: BP 142/86; Ht 167.6 cm; Wt 91.4 kg
[2018-06-08] MEDS ORDERED: TOPAMAX (06:50)
[2018-06-08] MEDS ORDERED: PROPANALOL (06:50)
[2018-06-08] MEDS ORDERED: ZYPREXA (06:50)
[2018-06-08] MEDS ORDERED: SERTRALINE (06:51)
[2018-06-08 07:12] LABS: BASOPHILS 0.3 % (0-2); HEMATOCRIT 44.6 % (42.0-54.0); HEMOGLOBIN 14.7 g/dL (13.5-17.5); IMMATURE GRANULOCYTES 0.3 % (0-5); LYMPHOCYTES 45.2 % (15-50); MCH 29.3 pg (26.0-34.0); MEAN PLATELET VOLUME 10.3 fL (7.4-10.4); NEUTROPHILS 41.2 % (40-80); RBC 5.01 10x6/uL (4.20-6.10); RDW 14.4 % (11.5-14.5); WBC 6.6 10x3/uL (4.8-10.8)
[2018-06-08 07:23] LABS: ALBUMIN 3.7 g/dL (3.4-5.0); ALKALINE PHOSPHATASE 83 U/L (46-116); ALT (SGPT) 79 U/L (10-68); BILIRUBIN - TOTAL 0.34 mg/dL (0.2-1.3); CALC OSMOLALITY 284 mosm/kg (275-300); CALCIUM 9.1 mg/dL (8.5-10.1); CARBON DIOXIDE 28.9 mmol/L (21.0-32.0); CHLORIDE - SERUM 106 mmol/L (98-107); CREATININE - SERUM 0.7 mg/dL (0.6-1.3); GLUCOSE 123 mg/dL (74-106); POTASSIUM - SERUM 3.9 mmol/L (3.5-5.1); PROTEIN - SERUM 8.3 g/dL (6.4-8.2); SODIUM 142 mmol/L (136-145); UREA NITROGEN 16 mg/dL (7-18); eGFR NON AFRICAN AMERICAN > 90 mL/min (90-120)
[2018-06-08 07:27] LABS: PLATELET COUNT 365 10x3/uL (130-400)
[2018-06-08 07:41] LABS: APPEARANCE CLEAR (CLEAR); BILIRUBIN NEGATIVE (NEGATIVE); COLOR YELLOW (YELLOW); GLUCOSE NEGATIVE (NEGATIVE); KETONE NEGATIVE (NEGATIVE); NITRITE NEGATIVE (NEGATIVE); PROTEIN NEGATIVE (NEGATIVE); SPECIFIC GRAVITY 1.025 (1.005-1.020); UROBILINOGEN NORMAL (NORMAL)
[2018-06-08 07:49] LABS: UDS - AMPHET NEGATIVE QUAL (NEGATIVE); UDS - BARB NEGATIVE QUAL (NEGATIVE); UDS - BENZO NEGATIVE QUAL (NEGATIVE); UDS - COCAINE NEGATIVE QUAL (NEGATIVE); UDS - OPIATE NEGATIVE QUAL (NEGATIVE); UDS - PCP NEGATIVE QUAL (NEGATIVE); UDS - THC NEGATIVE QUAL (NEGATIVE)
== END 2018-06-08 14:48 ==
LOC: D.ER 06:32
PROVIDERS: Emergency Medicine
DX: R45.851 Suicidal ideations (principal); F32.9 Major depressive disorder, single episode, unspecified; F19.11 Other psychoactive substance abuse, in remission; R45.850 Homicidal ideations; I10 Essential (primary) hypertension; F17.200 Nicotine dependence, unspecified, uncomplicated

== ENCOUNTER 2018-11-09 17:19 | Emergency (ER) | payer MEDICAID ==
[~2018-11-09] VITALS: Ht 167.6 cm; Wt 77.3 kg
[~2018-11-09 17:19] MED LIST changes: +PROPANALOL; +SERTRALINE; +TOPAMAX; +ZYPREXA
[2018-11-09 17:29] VITALS: Ht 167.6 cm; Wt 77.3 kg
[2018-11-09 17:47] LABS: APPEARANCE CLEAR (CLEAR); BILIRUBIN NEGATIVE (NEGATIVE); COLOR YELLOW (YELLOW); GLUCOSE NEGATIVE (NEGATIVE); KETONE SMALL mg/dL (NEGATIVE); NITRITE NEGATIVE (NEGATIVE); PROTEIN NEGATIVE (NEGATIVE); UROBILINOGEN NORMAL (NORMAL)
[2018-11-09 17:48] LABS: BASOPHILS 0.2 % (0-2); EOSINOPHILS 0.6 % (0-7); HEMATOCRIT 40.6 % (42.0-54.0); HEMOGLOBIN 14.4 g/dL (13.5-17.5); IMMATURE GRANULOCYTES 0.2 % (0-5); LYMPHOCYTES 29.1 % (15-50); MCH 30.8 pg (26.0-34.0); MCHC 35.5 g/dL (31.0-37.0); MCV 86.8 fL (80.0-100.0); MEAN PLATELET VOLUME 9.7 fL (7.4-10.4); MONOCYTES 11.8 % (2-11); NEUTROPHILS 58.1 % (40-80); PLATELET COUNT 309 10x3/uL (130-400); RBC 4.68 10x6/uL (4.20-6.10); RDW 12.5 % (11.5-14.5); WBC 10.4 10x3/uL (4.8-10.8)
[2018-11-09 17:58] LABS: UDS - AMPHET POSITIVE QUAL (NEGATIVE); UDS - BARB NEGATIVE QUAL (NEGATIVE); UDS - BENZO NEGATIVE QUAL (NEGATIVE); UDS - COCAINE NEGATIVE QUAL (NEGATIVE); UDS - OPIATE NEGATIVE QUAL (NEGATIVE); UDS - PCP NEGATIVE QUAL (NEGATIVE); UDS - THC NEGATIVE QUAL (NEGATIVE)
[2018-11-09 18:05] LABS: ALBUMIN 3.6 g/dL (3.4-5.0); ALKALINE PHOSPHATASE 89 U/L (46-116); ALT (SGPT) 89 U/L (10-68); BILIRUBIN - TOTAL 1.09 mg/dL (0.2-1.3); CALC OSMOLALITY 279 mosm/kg (275-300); CALCIUM 8.8 mg/dL (8.5-10.1); CARBON DIOXIDE 25.2 mmol/L (21.0-32.0); CHLORIDE - SERUM 105 mmol/L (98-107); CREATININE - SERUM 0.9 mg/dL (0.6-1.3); GLUCOSE 99 mg/dL (74-106); MAGNESIUM - SERUM 2.2 mg/dL (1.8-2.4); SODIUM 140 mmol/L (136-145); UREA NITROGEN 16 mg/dL (7-18); eGFR NON AFRICAN AMERICAN > 90 mL/min (90-120)
--- NOTE | 2018-11-09 18:20 | NUR ---
DR. NAVA NOTIFIED AND REVIEWED PT'S BEHAVIOR AND ASSESSMENT RESULTS. PT IS A LOW RISK PER DR. NAVA STATED TO GIVE RESOURCES TO PT AT TIME OF DISCHARGE. NO FURTHER ORDERS AT THIS TIME. RESOURCES REVIEWED WITH PT AND HE VERBALIZED UNDERSTANDING.
--- NOTE | 2018-11-09 18:20 | NUR ---
DR. NAVA NOTIFIED AND 1:1 SITTER OBSERVATION ORDERED. SITTER AT BEDSIDE. NOTIFIED CHARGE NURSE AND ATTENDING IN REGARDS TO ASSESSMENT FINDINGS. RESOURCES GIVEN TO PT AND SAFETY PLAN INITIATED.
[2018-11-10 03:56] VITALS: BP 106/68
== END 2018-11-10 03:57 ==
LOC: D.ER 17:19
PROVIDERS: Family Medicine
DX: Z91.14 Patient's other noncompliance with medication regimen (principal); R45.850 Homicidal ideations; F15.10 Other stimulant abuse, uncomplicated

== ENCOUNTER 2018-12-05 21:39 | Emergency (ER) | payer MEDICAID ==
[~2018-12-05] VITALS: Ht 167.6 cm; Wt 77.3 kg
[2018-12-05 21:48] VITALS: Ht 167.6 cm; Wt 77.3 kg
[2018-12-05 22:14] LABS: BASOPHILS 0.2 % (0-2); IMMATURE GRANULOCYTES 0.2 % (0-5); LYMPHOCYTES 26.1 % (15-50); MCH 30.6 pg (26.0-34.0); MCHC 34.1 g/dL (31.0-37.0); MCV 89.5 fL (80.0-100.0); MEAN PLATELET VOLUME 9.9 fL (7.4-10.4); NEUTROPHILS 56.5 % (40-80); PLATELET COUNT 356 10x3/uL (130-400); RBC 4.58 10x6/uL (4.20-6.10); RDW 12.9 % (11.5-14.5); WBC 9.7 10x3/uL (4.8-10.8)
[2018-12-05 22:19] LABS: APPEARANCE CLEAR (CLEAR); BILIRUBIN NEGATIVE (NEGATIVE); COLOR DK YELLOW (YELLOW); GLUCOSE NEGATIVE (NEGATIVE); KETONE LARGE mg/dL (NEGATIVE); NITRITE NEGATIVE (NEGATIVE); PROTEIN NEGATIVE (NEGATIVE); UROBILINOGEN NORMAL (NORMAL)
[2018-12-05 22:30] LABS: UDS - AMPHET POSITIVE QUAL (NEGATIVE); UDS - BARB NEGATIVE QUAL (NEGATIVE); UDS - BENZO NEGATIVE QUAL (NEGATIVE); UDS - COCAINE POSITIVE QUAL (NEGATIVE); UDS - OPIATE NEGATIVE QUAL (NEGATIVE); UDS - PCP NEGATIVE QUAL (NEGATIVE); UDS - THC POSITIVE QUAL (NEGATIVE)
[2018-12-05 22:33] LABS: ALBUMIN 3.8 g/dL (3.4-5.0); ALKALINE PHOSPHATASE 86 U/L (46-116); ALT (SGPT) 39 U/L (10-68); CALC OSMOLALITY 277 mosm/kg (275-300); CALCIUM 8.7 mg/dL (8.5-10.1); CARBON DIOXIDE 26.3 mmol/L (21.0-32.0); CHLORIDE - SERUM 103 mmol/L (98-107); GLUCOSE 99 mg/dL (74-106); POTASSIUM - SERUM 3.3 mmol/L (3.5-5.1); PROTEIN - SERUM 7.5 g/dL (6.4-8.2); SODIUM 138 mmol/L (136-145); UREA NITROGEN 18 mg/dL (7-18); eGFR NON AFRICAN AMERICAN > 90 mL/min (90-120)
--- NOTE | 2018-12-05 23:02 | NUR ---
PATIENT IS IN ER ROOM 21 WITH SUICIDAL IDEATIONS BUT NO PLAN. PT. IS HOMELESS AND SAID THAT HIS MEDS WERE STOLEN AND HE HAS BEEN OUT OF MEDS FOR ONE MONTH. PATIENT IS ALERT AND ORIENTED. THE SUICIDE ENVIORNMENT CHECK LIST IS STARTED. SUICIDE PREVENTION RESOURCES SHEET IS GIVEN TO HIM WITH PHONE NUMBERS AND WEB SITE. SAFETY PLAN WAS DISCUSSED WITH PATIENT AND COPY GIVEN TO HIM.
[2018-12-06 14:30] VITALS: BP 122/64
== END 2018-12-06 14:36 ==
LOC: D.ER 21:39
PROVIDERS: Family Medicine
DX: F31.9 Bipolar disorder, unspecified (principal); F15.10 Other stimulant abuse, uncomplicated; F14.10 Cocaine abuse, uncomplicated; R45.850 Homicidal ideations; R45.851 Suicidal ideations

== ENCOUNTER 2018-12-16 05:32 | Emergency (ER) | payer MEDICAID ==
[~2018-12-16] VITALS: Ht 167.6 cm; Wt 75.0 kg
[2018-12-16 05:36] VITALS: BP 132/81; Ht 167.6 cm; Wt 75.0 kg
--- NOTE | 2018-12-16 06:08 | NUR ---
DR NAVA NOTIFIED AND SITTER ORDERED, SITTER AT BEDSIDE. NOTIFIED CHARGE NURSE AND ATTENDING IN REGARDS TO ASSESSMENT FINDINGS. RESOURCES GIVEN TO PT AND SAFETY PLAN INITIATED.
[2018-12-16 06:10] LABS: BASOPHILS 0.2 % (0-2); EOSINOPHILS 0.4 % (0-7); HEMATOCRIT 43.8 % (42.0-54.0); HEMOGLOBIN 15.2 g/dL (13.5-17.5); IMMATURE GRANULOCYTES 0.2 % (0-5); LYMPHOCYTES 19.7 % (15-50); MCH 31.3 pg (26.0-34.0); MCHC 34.7 g/dL (31.0-37.0); MCV 90.3 fL (80.0-100.0); MEAN PLATELET VOLUME 10.3 fL (7.4-10.4); MONOCYTES 15.9 % (2-11); NEUTROPHILS 63.6 % (40-80); PLATELET COUNT 303 10x3/uL (130-400); RBC 4.85 10x6/uL (4.20-6.10); RDW 13.3 % (11.5-14.5); WBC 12.4 10x3/uL (4.8-10.8)
[2018-12-16 06:12] LABS: UDS - AMPHET POSITIVE QUAL (NEGATIVE); UDS - BARB NEGATIVE QUAL (NEGATIVE); UDS - BENZO NEGATIVE QUAL (NEGATIVE); UDS - COCAINE NEGATIVE QUAL (NEGATIVE); UDS - OPIATE NEGATIVE QUAL (NEGATIVE); UDS - PCP NEGATIVE QUAL (NEGATIVE); UDS - THC NEGATIVE QUAL (NEGATIVE)
[2018-12-16 06:19] LABS: APPEARANCE CLEAR (CLEAR); BILIRUBIN NEGATIVE (NEGATIVE); COLOR YELLOW (YELLOW); GLUCOSE NEGATIVE (NEGATIVE); KETONE SMALL mg/dL (NEGATIVE); NITRITE NEGATIVE (NEGATIVE); PROTEIN NEGATIVE (NEGATIVE); SPECIFIC GRAVITY 1.005 (1.005-1.020); UROBILINOGEN NORMAL (NORMAL)
[2018-12-16 06:25] LABS: ALBUMIN 4.1 g/dL (3.4-5.0); ALKALINE PHOSPHATASE 80 U/L (46-116); ALT (SGPT) 44 U/L (10-68); BILIRUBIN - TOTAL 1.72 mg/dL (0.2-1.3); CALC OSMOLALITY 275 mosm/kg (275-300); CALCIUM 9.4 mg/dL (8.5-10.1); CARBON DIOXIDE 29.2 mmol/L (21.0-32.0); CHLORIDE - SERUM 96 mmol/L (98-107); CREATININE - SERUM 0.9 mg/dL (0.6-1.3); GLUCOSE 106 mg/dL (74-106); MAGNESIUM - SERUM 2.3 mg/dL (1.8-2.4); POTASSIUM - SERUM 4.1 mmol/L (3.5-5.1); PROTEIN - SERUM 8.3 g/dL (6.4-8.2); SODIUM 135 mmol/L (136-145); UREA NITROGEN 30 mg/dL (7-18); eGFR NON AFRICAN AMERICAN > 90 mL/min (90-120)
== END 2018-12-16 13:04 ==
LOC: D.ER 05:32
PROVIDERS: Family Medicine
DX: R45.851 Suicidal ideations (principal); F31.9 Bipolar disorder, unspecified; F15.90 Other stimulant use, unspecified, uncomplicated

== ENCOUNTER 2019-02-15 01:05 | Emergency (ER) | payer MEDICAID ==
[~2019-02-15] VITALS: Ht 167.6 cm; Wt 65.9 kg
[2019-02-15 01:23] VITALS: Ht 167.6 cm; Wt 65.9 kg
--- NOTE | 2019-02-15 01:28 | NUR ---
DR. NAVA NOTIFIED AND REVIEWED PT'S BEHAVIOR AND ASSESSMENT RESULTS. PT IS A LOW RISK PER DR. NAVA. DR. NAVA STATED TO GIVE RESOURCES TO PT AT TIME OF DISCHARGE. NO FURTHER ORDERS AT THIS TIME. RESOURCES REVIEWED WITH PT AND HE VERBALIZED UNDERSTANDING.
[2019-02-15 01:41] LABS: APPEARANCE CLEAR (CLEAR); COLOR DK YELLOW (YELLOW); NITRITE NEGATIVE (NEGATIVE); PROTEIN 1+ mg/dL (NEGATIVE)
[2019-02-15 01:42] LABS: BILIRUBIN NEGATIVE (NEGATIVE); GLUCOSE NEGATIVE (NEGATIVE); KETONE MODERATE mg/dL (NEGATIVE); UROBILINOGEN NORMAL (NORMAL)
[2019-02-15 01:43] LABS: BACTERIA FEW /hpf (NEGATIVE); EPITHELIAL CELLS 0-5 /hpf (0-5); MUCUS >1+ /lpf (NONE SEEN); RED CELLS - URINE 0-5 /hpf (0-5); WHITE CELLS - URINE 0-5 /hpf (NEGATIVE)
[2019-02-15 01:43] LABS: BASOPHILS 0.2 % (0-2); EOSINOPHILS 1.3 % (0-7); HEMATOCRIT 43.7 % (42.0-54.0); HEMOGLOBIN 14.9 g/dL (13.5-17.5); IMMATURE GRANULOCYTES 0.2 % (0-5); LYMPHOCYTES 23.6 % (15-50); MCH 31.4 pg (26.0-34.0); MCHC 34.1 g/dL (31.0-37.0); MONOCYTES 12.7 % (2-11); PLATELET COUNT 315 10x3/uL (130-400); RBC 4.75 10x6/uL (4.20-6.10); RDW 13.3 % (11.5-14.5); WBC 11.4 10x3/uL (4.8-10.8)
[2019-02-15] MEDS ORDERED: INVEGA 3 MG ER T3 MG PO (01:43)
[2019-02-15 01:44] LABS: UDS - AMPHET POSITIVE QUAL (NEGATIVE); UDS - BARB NEGATIVE QUAL (NEGATIVE); UDS - BENZO NEGATIVE QUAL (NEGATIVE); UDS - COCAINE NEGATIVE QUAL (NEGATIVE); UDS - OPIATE NEGATIVE QUAL (NEGATIVE); UDS - PCP NEGATIVE QUAL (NEGATIVE); UDS - THC POSITIVE QUAL (NEGATIVE)
[2019-02-15] MEDS ORDERED: BUSPAR 15 MG TA15 MG PO (01:44)
[2019-02-15] MEDS ORDERED: SEROQUEL50 MG PO (01:45)
[2019-02-15 02:05] LABS: ALBUMIN 3.8 g/dL (3.4-5.0); ALKALINE PHOSPHATASE 75 U/L (46-116); ALT (SGPT) 35 U/L (10-68); BILIRUBIN - TOTAL 2.65 mg/dL (0.2-1.3); CALC OSMOLALITY 284 mosm/kg (275-300); CALCIUM 8.8 mg/dL (8.5-10.1); CARBON DIOXIDE 24.1 mmol/L (21.0-32.0); CHLORIDE - SERUM 103 mmol/L (98-107); CREATININE - SERUM 0.9 mg/dL (0.6-1.3); GLUCOSE 94 mg/dL (74-106); POTASSIUM - SERUM 3.4 mmol/L (3.5-5.1); PROTEIN - SERUM 7.7 g/dL (6.4-8.2); SODIUM 141 mmol/L (136-145); UREA NITROGEN 23 mg/dL (7-18); eGFR NON AFRICAN AMERICAN > 90 mL/min (90-120)
[2019-02-15 02:56] LABS: CKMB 10.8 U/L (0.0-3.6); CREATINE KINASE 952 UL (21-232)
[2019-02-15 04:57] VITALS: BP 132/99
== END 2019-02-15 05:46 ==
LOC: D.ER 01:05
PROVIDERS: Family Medicine
DX: R45.851 Suicidal ideations (principal); R45.850 Homicidal ideations; E87.6 Hypokalemia; E86.0 Dehydration; F17.210 Nicotine dependence, cigarettes, uncomplicated

== ENCOUNTER 2019-04-09 22:19 | Emergency (ER) | payer MEDICAID ==
[~2019-04-09] VITALS: Ht 175.3 cm; Wt 90.9 kg
[~2019-04-09 22:19] MED LIST changes: +BUSPAR 15 MG TA15 MG PO; +INVEGA 3 MG ER T3 MG PO; +SEROQUEL50 MG PO
[2019-04-09] MEDS ORDERED: AVAPRO75 MG PO (22:32)
[2019-04-09] MEDS ORDERED: GLIPIZIDE10 MG PO (22:33)
[2019-04-09] MEDS ORDERED: ALBUTEROL SULF8.5 GM INH (22:33)
[2019-04-09 22:38] VITALS: Ht 175.3 cm; Wt 90.9 kg
[2019-04-09] MEDS ORDERED: SEROQUEL (22:42)
[2019-04-09] MEDS ORDERED: BUSPIRONE HCL30 MG PO (22:42)
[2019-04-09] MEDS ORDERED: VISTARIL (22:42)
[2019-04-09] MEDS ORDERED: NEURONTIN (22:43)
[2019-04-09 22:51] LABS: APPEARANCE CLEAR (CLEAR); COLOR YELLOW (YELLOW)
[2019-04-09 22:52] LABS: BILIRUBIN NEGATIVE (NEGATIVE); GLUCOSE NEGATIVE (NEGATIVE); KETONE LARGE mg/dL (NEGATIVE); NITRITE NEGATIVE (NEGATIVE); PROTEIN NEGATIVE (NEGATIVE); UROBILINOGEN NORMAL (NORMAL)
[2019-04-09 22:58] LABS: BASOPHILS 0.2 % (0-2); EOSINOPHILS 0.2 % (0-7); HEMATOCRIT 40.8 % (42.0-54.0); HEMOGLOBIN 14.1 g/dL (13.5-17.5); IMMATURE GRANULOCYTES 0.3 % (0-5); LYMPHOCYTES 17.2 % (15-50); MCH 31.3 pg (26.0-34.0); MCHC 34.6 g/dL (31.0-37.0); MCV 90.5 fL (80.0-100.0); MEAN PLATELET VOLUME 9.9 fL (7.4-10.4); MONOCYTES 12.7 % (2-11); NEUTROPHILS 69.4 % (40-80); PLATELET COUNT 288 10x3/uL (130-400); RBC 4.51 10x6/uL (4.20-6.10); RDW 12.9 % (11.5-14.5); WBC 12.5 10x3/uL (4.8-10.8)
[2019-04-09 23:00] LABS: UDS - AMPHET POSITIVE QUAL (NEGATIVE); UDS - BARB NEGATIVE QUAL (NEGATIVE); UDS - BENZO NEGATIVE QUAL (NEGATIVE); UDS - COCAINE NEGATIVE QUAL (NEGATIVE); UDS - OPIATE NEGATIVE QUAL (NEGATIVE); UDS - PCP NEGATIVE QUAL (NEGATIVE); UDS - THC NEGATIVE QUAL (NEGATIVE)
[2019-04-09 23:07] LABS: CALC OSMOLALITY 269 mosm/kg (275-300); CALCIUM 8.8 mg/dL (8.5-10.1); CARBON DIOXIDE 24.5 mmol/L (21.0-32.0); CHLORIDE - SERUM 99 mmol/L (98-107); CREATININE - SERUM 0.7 mg/dL (0.6-1.3); GLUCOSE 88 mg/dL (74-106); POTASSIUM - SERUM 3.4 mmol/L (3.5-5.1); SODIUM 134 mmol/L (136-145); UREA NITROGEN 21 mg/dL (7-18); eGFR NON AFRICAN AMERICAN > 90 mL/min (90-120)
[2019-04-09 23:13] LABS: ALBUMIN 3.3 g/dL (3.4-5.0); ALKALINE PHOSPHATASE 63 U/L (46-116); ALT (SGPT) 53 U/L (10-68); BILIRUBIN - TOTAL 2.65 mg/dL (0.2-1.3); PROTEIN - SERUM 6.7 g/dL (6.4-8.2)
[2019-04-10 04:03] VITALS: BP 124/78
== END 2019-04-10 04:19 ==
LOC: D.ER 22:19
PROVIDERS: Emergency Medicine
DX: R45.851 Suicidal ideations (principal); F32.9 Major depressive disorder, single episode, unspecified; R45.850 Homicidal ideations; F19.10 Other psychoactive substance abuse, uncomplicated; E87.6 Hypokalemia; I10 Essential (primary) hypertension; Z72.0 Tobacco use

== ENCOUNTER 2019-04-24 07:21 | Emergency (ER) | payer MEDICAID ==
[~2019-04-24] VITALS: Ht 172.7 cm; Wt 95.5 kg
[~2019-04-24 07:21] MED LIST changes: +ALBUTEROL SULF8.5 GM INH; +AVAPRO75 MG PO; +BUSPIRONE HCL30 MG PO; +GLIPIZIDE10 MG PO; +NEURONTIN; +SEROQUEL; +VISTARIL
[2019-04-24 07:41] VITALS: Ht 172.7 cm; Wt 95.5 kg
[2019-04-24 08:13] LABS: APPEARANCE CLEAR (CLEAR); BILIRUBIN NEGATIVE (NEGATIVE); COLOR YELLOW (YELLOW); GLUCOSE NEGATIVE (NEGATIVE); KETONE LARGE mg/dL (NEGATIVE); NITRITE NEGATIVE (NEGATIVE); PROTEIN NEGATIVE (NEGATIVE); UROBILINOGEN NORMAL (NORMAL)
[2019-04-24 08:14] LABS: BASOPHILS 0.2 % (0-2); EOSINOPHILS 0.1 % (0-7); HEMOGLOBIN 13.9 g/dL (13.5-17.5); IMMATURE GRANULOCYTES 0.3 % (0-5); LYMPHOCYTES 16.7 % (15-50); MCH 30.9 pg (26.0-34.0); MCHC 33.1 g/dL (31.0-37.0); MCV 93.3 fL (80.0-100.0); MONOCYTES 9.8 % (2-11); NEUTROPHILS 72.9 % (40-80); PLATELET COUNT 390 10x3/uL (130-400); RDW 13.4 % (11.5-14.5); WBC 14.6 10x3/uL (4.8-10.8)
[2019-04-24 08:21] LABS: UDS - AMPHET POSITIVE QUAL (NEGATIVE); UDS - BARB NEGATIVE QUAL (NEGATIVE); UDS - BENZO NEGATIVE QUAL (NEGATIVE); UDS - COCAINE NEGATIVE QUAL (NEGATIVE); UDS - OPIATE NEGATIVE QUAL (NEGATIVE); UDS - PCP NEGATIVE QUAL (NEGATIVE); UDS - THC NEGATIVE QUAL (NEGATIVE)
[2019-04-24 08:22] LABS: CALC OSMOLALITY 277 mosm/kg (275-300); CALCIUM 9.3 mg/dL (8.5-10.1); CARBON DIOXIDE 17.6 mmol/L (21.0-32.0); CHLORIDE - SERUM 100 mmol/L (98-107); CREATININE - SERUM 0.7 mg/dL (0.6-1.3); GLUCOSE 74 mg/dL (74-106); SODIUM 136 mmol/L (136-145); UREA NITROGEN 33 mg/dL (7-18); eGFR NON AFRICAN AMERICAN > 90 mL/min (90-120)
[2019-04-24 08:27] LABS: ALBUMIN 3.9 g/dL (3.4-5.0); ALKALINE PHOSPHATASE 76 U/L (46-116); ALT (SGPT) 79 U/L (10-68); BILIRUBIN - TOTAL 2.42 mg/dL (0.2-1.3); MAGNESIUM - SERUM 2.2 mg/dL (1.8-2.4); PROTEIN - SERUM 7.9 g/dL (6.4-8.2)
--- NOTE | 2019-04-24 08:30 | NUR ---
DR. NAVA NOTIFIED AND SITTER ORDERED. SITTER AT BEDSIDE. NOTIFIED CHARGE NURSE AND ATTENDING IN REGARDS TO ASSESSMENT FINDINGS. RESOURCES REVIEWED WITH PATIENT AND HE VERBALIZES UNDERSTANDING.
[2019-04-24 09:31] LABS: CREATINE KINASE 825 UL (21-232)
[2019-04-24 09:32] LABS: CKMB 10.6 U/L (0.0-3.6)
[2019-04-25 01:57] VITALS: BP 138/74
== END 2019-04-25 02:09 ==
LOC: D.ER 07:21
PROVIDERS: Family Medicine
DX: R45.851 Suicidal ideations (principal); E86.0 Dehydration; R45.850 Homicidal ideations; M62.82 Rhabdomyolysis; F19.10 Other psychoactive substance abuse, uncomplicated; F32.9 Major depressive disorder, single episode, unspecified